=== PATIENT | female | born 1995 | race American Indian/Alaskan Native ===

== ENCOUNTER 2019-04-29 18:10 | Emergency (ER) | payer SELFPAY ==
[2019-04-29] MEDS ORDERED: NACL 0.9% 1000 ML 1,000 ML IV ONE (21:47)
[2019-04-29 22:09] LABS: Basophils # (Auto) 0.1 K/mm3 (0.0-0.1); Basophils % (Auto) 1.3 % (0.0-1.8); Eosinophils # (Auto) 0.1 K/mm3 (0.0-0.4); Eosinophils % (Auto) 0.9 % (0.0-4.3); Hematocrit 35.5 % (30.3-42.9); Hemoglobin 12.3 gm/dl (10.1-14.3); Lymphocytes # (Auto) 1.2 K/mm3 (1.2-5.4); Lymphocytes % (Auto) 12.9 % (13.4-35.0); Mean Corpuscular HGB Conc 35 % (30-34); Mean Corpuscular Hemoglobin 31 pg (28-32); Mean Corpuscular Volume 90 fl (79-97); Monocytes # (Auto) 0.5 K/mm3 (0.0-0.8); Monocytes % (Auto) 5.4 % (0.0-7.3); Platelet Count 213 K/mm3 (140-440); Red Blood Count 3.97 M/mm3 (3.65-5.03); Red Cell Distribution Width 13.7 % (13.2-15.2)
[2019-04-29 22:23] LABS: Alanine Aminotransferase 15 units/L (7-56); Albumin 3.7 g/dL (3.9-5); BUN/Creatinine Ratio 16; Blood Urea Nitrogen 8 mg/dL (7-17); Calcium 8.9 mg/dL (8.4-10.2); Hemolysis Index 3
--- NOTE | 2019-04-30 00:27 | Ultrasound Report ---
ULTRASOUND OBSTETRIC INDICATION: 18 weeks with vaginal bleeding. Clinical age: 15 weeks, 4 days. TECHNIQUE: Transvaginal. COMPARISON: None available. FINDINGS: There is a single intrauterine . Biparietal Diameter = 3.1 cm = 15 weeks, 5 day(s). Head Circumference = 9.1 cm = 14 weeks, 1 day(s). Abdominal Circumference = 9.6 cm = 15 weeks, 5 day(s). Femur Length = 1.6 cm = 14 weeks, 4 day(s). Average Ultrasound Age (AUA) = 15 weeks, 0 day(s). Heart Rate: 153 beats per minute. Estimated Weight in grams (if calculated): Not calculated Estimated Weight Growth Percentile (if calculated): Not calculated Maternal Adnexa: No significant abnormality. IMPRESSION: 1. Single, living intrauterine with estimated sonographic age of 15 weeks, 0 day(s). 2. No significant sonographic abnormality. Signer Name: Juan C Hoyt MD Signed: 04/30/2019 12:23 AM Workstation Name: [email or web address]
--- NOTE | 2019-04-30 00:52 | Emergency Department Report ---
ED General Adult HPI - General Chief complaint: Weakness Stated complaint: PASSED OUT Time Seen by Provider: 04/29/19 20:54 Source: patient Mode of arrival: Ambulatory Limitations: No Limitations - History of Present Illness Initial comments: 24-year-old female reports being about 15 weeks with no significant OB follow-up today. She was in [place] waiting to eat a sandwich when she felt sweaty, clammy and had a syncopal orpresyncopal episode lasting for several minutes. States that she sips of water and at that she had drank a Coke. She began to feel normal again. She reports no symptoms since that time. This occurred about an hour and a half to 2 hours prior to arrival. She reports no history of gestational diabetes has been previously, but she had that in the miscarriage. Reports no fever, chills, nausea or vomiting at present Radiation: non-radiation Improves with: none Worsens with: none Associated Symptoms: denies other symptoms Treatments Prior to Arrival: none - Related Data Allergies Allergy/AdvReac Type Severity Reaction Status Date / Time Penicillins Allergy Hives Verified 04/29/19 18:10 ED Review of Systems ROS: Stated complaint: PASSED OUT Other details as noted in HPI Comment: All other systems reviewed and negative ED Past Medical Hx - Past Medical History Previous Medical History?: No - Surgical History Past Surgical History?: No - Social History Smoking Status: Never Smoker Substance Use Type: None ED Physical Exam - General Limitations: No Limitations General appearance: alert, in no apparent distress - Head Head exam: Present: atraumatic, normocephalic - Eye Eye exam: Present: normal appearance - ENT ENT exam: Present: mucous membranes moist - Neck Neck exam: Present: normal inspection - Respiratory Respiratory exam: Present: normal lung sounds bilaterally. Absent: respiratory distress - Cardiovascular Cardiovascular Exam: Present: regular rate, normal rhythm. Absent: systolic murmur, diastolic murmur, rubs, gallop - GI/Abdominal GI/Abdominal exam: Present: soft, normal bowel sounds - Extremities Exam Extremities exam: Present: normal inspection - Back Exam Back exam: Present: normal inspection - Neurological Exam Neurological exam: Present: alert, oriented X3 - Psychiatric Psychiatric exam: Present: normal affect, normal mood - Skin Skin exam: Present: warm, dry, intact, normal color. Absent: rash ED Course Vital Signs 04/29/19 18:18 Temperature 97.5 F L Pulse Rate 85 Respiratory 16 Rate Blood Pressure 101/61 [Left] O2 Sat by Pulse 100 Oximetry ED Medical Decision Making - Lab Data Result diagrams: 04/29/19 21:55 04/29/19 21:55 - Radiology Data Radiology results: report reviewed (normal) - Medical Decision Making 4-year-old female with a presyncopal episode sounded ligament been related to hypoglycemia. No evidence of any volume depletion/dehydration. No infectious processes. No obvious vascular pathology is found. She has been back to her normal baseline since being in the emergency department also was observed for several hours with and ambulated with no reemergence of symptoms. Her ultrasound shows a 15 week , normal findings. Critical care attestation.: If time is entered above; I have spent that time in minutes in the direct care of this critically ill patient, excluding procedure time. ED Disposition Clinical Impression: Weakness, Disposition: DC-01 TO HOME OR SELFCARE Is pt being admited?: No Does the pt Need Aspirin: No Condition: Stable Instructions: (ED) Referrals: ASAD MALCOLM MD [Primary Care Provider] - 3-5 Days Forms: Accompanied Note
[2019-04-30 01:05] VITALS: BP 114/84
== END 2019-04-30 01:08 | disposition home or self-care (01) ==
LOC: ED 18:10
DX: O26.892 Other specified pregnancy related conditions, second trimester (principal); R55 Syncope and collapse; R53.1 Weakness; Z88.0 Allergy status to penicillin; Z3A.15 15 weeks gestation of pregnancy
CPT/HCPCS: 36415; 76805; 76817; 80053; 84702; 85025; 96360; 96361; 99284; J7030

== ENCOUNTER 2021-05-11 20:25 | Emergency (ER) | payer SELFPAY ==
[2021-05-12 00:18] LABS: Basophils # (Auto) 0.1 K/mm3 (0.0-0.1); Basophils % (Auto) 0.4 % (0.0-1.8); Eosinophils # (Auto) 0.2 K/mm3 (0.0-0.4); Eosinophils % (Auto) 1.5 % (0.0-4.3); Hematocrit 41.9 % (30.3-42.9); Hemoglobin 14.2 gm/dl (10.1-14.3); Lymphocytes # (Auto) 1.5 K/mm3 (1.2-5.4); Lymphocytes % (Auto) 12.6 % (13.4-35.0); Mean Corpuscular HGB Conc 34 % (30-34); Mean Corpuscular Volume 94 fl (79-97); Monocytes % (Auto) 8.3 % (0.0-7.3); Platelet Count 258 K/mm3 (140-440); Red Blood Count 4.47 M/mm3 (3.65-5.03); Red Cell Distribution Width 13.1 % (13.2-15.2)
[2021-05-12 00:37] LABS: Alanine Aminotransferase 19 units/L (7-56); Albumin 4.5 g/dL (3.9-5); BUN/Creatinine Ratio 17; Blood Urea Nitrogen 12 mg/dL (7-17); Calcium 9.5 mg/dL (8.4-10.2); Hemolysis Index 7
[2021-05-12 00:38] LABS: Bilirubin,Direct < 0.2 mg/dL (0-0.2)
[2021-05-12] MEDS ORDERED: MORPHINE 4 MG/1 ML INJ IV ONE (02:44)
[2021-05-12] MEDS ORDERED: ONDANSETRON 4 MG/2 ML INJ IV ONE (02:44)
--- NOTE | 2021-05-12 02:47 | Emergency Department Report ---
ED Abdominal Pain HPI - General Chief Complaint: Abdominal Pain Stated Complaint: ABDOMINAL PAIN Time Seen by Provider: 05/12/21 02:37 Source: patient Mode of arrival: Ambulatory Limitations: No Limitations - History of Present Illness Initial Comments: Patient is 26-year-old female with no significant past medical history. Patient presented to the ER complaining of abdominal pain. Patient described her pain as cramping in nature started around epigastric area. Patient stated that she feel the pain now is in the right lower quadrant area and suprapubic area. Patient denied any fever or chills. No nausea or vomiting. MD Complaint: abdominal pain -: Last night Location: epigastric Radiation: RLQ, suprapubic Migration to: no migration Severity: moderate Severity scale (0 -10): 5 Quality: cramping Consistency: intermittent - Related Data Allergies Allergy/AdvReac Type Severity Reaction Status Date / Time Penicillins Allergy Hives Verified 04/29/19 18:10 ED Review of Systems ROS: Stated complaint: ABDOMINAL PAIN Other details as noted in HPI Comment: All other systems reviewed and negative Constitutional: denies: chills, fever Respiratory: denies: cough, shortness of breath, SOB with exertion Cardiovascular: denies: chest pain, palpitations Gastrointestinal: abdominal pain, nausea. denies: vomiting, diarrhea, constipation, hematemesis, melena, hematochezia Musculoskeletal: denies: back pain Neurological: denies: headache, weakness ED Past Medical Hx - Past Medical History Previous Medical History?: No - Surgical History Past Surgical History?: No - Social History Smoking Status: Never Smoker Substance Use Type: None ED Physical Exam - General Limitations: No Limitations General appearance: alert, in no apparent distress - Head Head exam: Present: atraumatic, normocephalic, normal inspection - Eye Eye exam: Present: normal appearance, PERRL - ENT ENT exam: Present: normal exam, normal orophraynx, mucous membranes moist - Neck Neck exam: Present: normal inspection, full ROM. Absent: tenderness, meningismus - Respiratory Respiratory exam: Present: normal lung sounds bilaterally - Cardiovascular Cardiovascular Exam: Present: regular rate, normal rhythm, normal heart sounds - GI/Abdominal GI/Abdominal exam: Present: soft, tenderness, normal bowel sounds. Absent: distended, guarding, rebound, rigid, organomegaly, mass, bruit, pulsatile mass, hernia - Extremities Exam Extremities exam: Present: normal inspection, full ROM, normal capillary refill. Absent: tenderness - Back Exam Back exam: Present: normal inspection, full ROM. Absent: CVA tenderness (R), CVA tenderness (L) - Neurological Exam Neurological exam: Present: alert, oriented X3, CN II-XII intact, normal gait, reflexes normal. Absent: motor sensory deficit - Psychiatric Psychiatric exam: Present: normal mood - Skin Skin exam: Present: warm, intact, normal color ED Course Vital Signs 05/11/21 20:38 Temperature 98.7 F Pulse Rate 103 H Respiratory 20 Rate Blood Pressure 135/73 O2 Sat by Pulse 96 Oximetry ED Medical Decision Making - Lab Data Result diagrams: 05/11/21 22:57 05/11/21 22:57 - Radiology Data Radiology results: report reviewed - Medical Decision Making Patient is 26-year-old female with no significant past medical history. Patient presented to the ER complaining of abdominal pain. Patient described her pain as cramping in nature started around epigastric area. Patient stated that she feel the pain now is in the right lower quadrant area and suprapubic area. Patient denied any fever or chills. No nausea or vomiting. Labs reviewed and showed leukocytosis. Urine is strongly positive for UTI. CT abdomen and pelvis showed normal appendix and possibility of enteritis. Patient given ciprofloxacin for her UTI and advised to follow-up with her primary care physician in the next 2 to 3 days and to return to the ER if she develop any new symptoms. Critical care attestation.: If time is entered above; I have spent that time in minutes in the direct care of this critically ill patient, excluding procedure time. ED Disposition Clinical Impression: Acute abdominal pain, UTI (urinary tract infection), Enteritis Disposition: TO HOME OR SELFCARE Is pt being admited?: No Condition: Stable Instructions: Abdominal Pain (ED), Abdominal Pain, Adult, [id number], Urinary Tract Infection, Adult, [id number] Referrals: PRIMARY CARE, [Primary Care Provider] - 3-5 Days
[2021-05-12 04:12] LABS: Bacteria,Urine 1+ /HPF (Negative); Mucus,Urine 2+ /HPF
[2021-05-12 04:31] LABS: Bilirubin,Urine NEG (Negative); Blood,Urine NEG (Negative); Color,Urine Yellow (Yellow); Protein,Urine <15 mg/dL mg/dL (Negative); Urobilinogen,Urine < 2.0 mg/dL (<2.0)
--- NOTE | 2021-05-12 04:58 | Cat Scan Report ---
CT ABDOMEN AND PELVIS WITH CONTRAST INDICATION / CLINICAL INFORMATION: abdominal pain/ RLQ TENDERNESS. TECHNIQUE: Axial CT images were obtained through the abdomen and pelvis after 100 mL Omnipaque [address] scans at this location are performed using CT dose reduction for ALARA by means of automated exposure control. COMPARISON: None available. FINDINGS: LOWER CHEST: No significant abnormality. LIVER: No significant abnormality. GALLBLADDER: No significant abnormality. BILE DUCTS: No significant abnormality. PANCREAS: No significant abnormality. SPLEEN: No significant abnormality. ADRENALS: No significant abnormality. RIGHT KIDNEY / URETER: No significant abnormality. LEFT KIDNEY / URETER: No significant abnormality. STOMACH / SMALL BOWEL: Fluid-filled but nondilated mid to distal small bowel with mild wall thickenin g. COLON: No significant abnormality. APPENDIX: No significant abnormality. PERITONEUM: Trace free fluid in the pelvis which may be physiologic. No free air. No fluid collection . LYMPH NODES: No significant adenopathy. AORTA / ARTERIES: No significant abnormality. IVC / VEINS: No significant abnormality. URINARY BLADDER: No significant abnormality. REPRODUCTIVE ORGANS: No significant abnormality. ADDITIONAL FINDINGS: None. 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 IMPRESSION: 1. Fluid-filled, nondilated small bowel with mild wall thickening which can be seen in the clinical s etting of enteritis. Normal appendix. Signer Name: Benja Menon MD Signed: 05/12/2021 4:53 AM Workstation Name: [id number]
[2021-05-12] MEDS ORDERED: ACETAMINOPHEN 325 MG TAB PO ONE (05:26)
[2021-05-12] MEDS ORDERED: MORPHINE 2 MG/1 ML INJ ONE (05:52)
[2021-05-12] MEDS ORDERED: ONDANSETRON 4 MG/2 ML INJ ONE (05:52)
[2021-05-12 06:15] VITALS: BP 120/85
== END 2021-05-12 06:10 | disposition home or self-care (01) ==
LOC: ED 20:25
DX: N39.0 Urinary tract infection, site not specified (principal); K52.9 Noninfective gastroenteritis and colitis, unspecified; R10.9 Unspecified abdominal pain; Z88.0 Allergy status to penicillin
CPT/HCPCS: 36415; 74177; 80048; 80076; 81001; 83690; 84703; 85025; 99284; J2270; J2405; Q9967